=== PATIENT | male | born 1965 | race African-American/Black ===

== ENCOUNTER 2024-07-14 10:43 | Emergency (ER) | payer MEDICAID, SELFPAY ==
[~2024-07-14] VITALS: Ht 175.3 cm; Wt 68.2 kg
[2024-07-14 11:41] VITALS: BP 147/99; PULSE 77; RESP 18; TEMP 98.9; O2SAT 98
[2024-07-14] MEDS: ACETAMINOPHEN 325 MG TABLET PO ONE (11:45)
[2024-07-14] MEDS: IBUPROFEN 400 MG TABLET PO ONE (11:45)
[2024-07-14] MEDS ORDERED: ACET-2247 PO (16:43)
[2024-07-14] MEDS ORDERED: IBUP-1506 PO (16:43)
== END 2024-07-14 17:52 | disposition home or self-care (01) ==
LOC: EMS 10:53
DX: S60.221A Contusion of right hand, initial encounter (principal); M54.2 Cervicalgia; J45.909 Unspecified asthma, uncomplicated; F10.90 Alcohol use, unspecified, uncomplicated; Y90.9 Presence of alcohol in blood, level not specified; Z59.02 Unsheltered homelessness; X58.XXXA Exposure to other specified factors, initial encounter; Y93.89 Activity, other specified; Y92.89 Other specified places as the place of occurrence of the external cause; Y99.8 Other external cause status
CPT/HCPCS: 72125; 99284; 73130-TC; Z7502; Z7610